=== PATIENT | male | born 1990 | race Hispanic/Latino ===

== ENCOUNTER 2016-04-29 00:16 | Emergency (ER) | payer SELFPAY ==
[2016-04-29 00:33] VITALS: BP 142/82
[2016-04-29] MEDS ORDERED: TYLENOL #3 PO ONE (03:44)
--- NOTE | 2016-04-29 04:24 | Emergency Department Report ---
ED ENT HPI - General Chief complaint: Sore Throat Stated complaint: THORAT PAIN Time Seen by Provider: 04/29/16 03:43 Source: patient Mode of arrival: Ambulatory Limitations: No Limitations - History of Present Illness Initial comments: Patient is a 75-year-old male who presents to ED complaining of left sided lower dental/jaw pain 1 week. Patient states he was into the dentist a couple of weeks ago and was given some antibiotics for his tooth infection. Patient states he had an appointment last week Monday the appointment was canceled due to the snow and he was not seen by the dentist. Patient states he has a dentist appointment in the next 2 weeks but pain has calmed progressively worse and he could not wait to 2 weeks. Patient had made some difficulty swallowing this. Due to tenderness from that side of his jaw. Patient denies fevers/chills/nausea/vomiting/abdominal pain/chest pains or shortness of breath or any other problems. - Related Data Previous Rx's Medication Instructions Recorded Last Taken Type Acetaminophen/Codeine [Tylenol #3] 1 tab PO Q6H PRN #12 tab 04/29/16 Unknown Rx Clindamycin [Clindamycin CAP] 300 mg PO Q8H #20 cap 04/29/16 Unknown Rx Ibuprofen [Motrin] 800 mg PO Q8HR PRN #30 tablet 04/29/16 Unknown Rx predniSONE [Deltasone] 5 mg PO QDAY #4 tab 04/29/16 Unknown Rx Allergies Allergy/AdvReac Type Severity Reaction Status Date / Time No Known Allergies Allergy Verified 04/29/16 00:44 ED Dental HPI - General Chief complaint: Sore Throat Stated complaint: THORAT PAIN Time Seen by Provider: 04/29/16 03:43 Source: patient Mode of arrival: Ambulatory Limitations: No Limitations - Related Data Previous Rx's Medication Instructions Recorded Last Taken Type Acetaminophen/Codeine [Tylenol #3] 1 tab PO Q6H PRN #12 tab 04/29/16 Unknown Rx Clindamycin [Clindamycin CAP] 300 mg PO Q8H #20 cap 04/29/16 Unknown Rx Ibuprofen [Motrin] 800 mg PO Q8HR PRN #30 tablet 04/29/16 Unknown Rx predniSONE [Deltasone] 5 mg PO QDAY #4 tab 04/29/16 Unknown Rx Allergies Allergy/AdvReac Type Severity Reaction Status Date / Time No Known Allergies Allergy Verified 04/29/16 00:44 ED Review of Systems ROS: Stated complaint: THORAT PAIN Other details as noted in HPI Constitutional: denies: chills, fever Eyes: denies: eye pain, eye discharge, vision change ENT: dental pain. denies: ear pain, throat pain, hearing loss, congestion Respiratory: denies: cough, shortness of breath, wheezing Cardiovascular: denies: chest pain, palpitations Endocrine: no symptoms reported Gastrointestinal: denies: abdominal pain, nausea, vomiting, diarrhea Genitourinary: denies: urgency, dysuria Musculoskeletal: denies: back pain, joint swelling, arthralgia Skin: denies: rash, lesions Neurological: denies: headache, weakness, paresthesias Psychiatric: denies: anxiety, depression Hematological/Lymphatic: denies: easy bleeding, easy bruising ED Past Medical Hx - Past Medical History Previous Medical History?: Yes Hx Hypertension: Yes Additional medical history: obesity - Surgical History Past Surgical History?: No - Social History Smoking Status: Light Tobacco Smoker Substance Use Type: Alcohol - Medications Home Medications: Home Medications Medication Instructions Recorded Confirmed Last Taken Type Acetaminophen/Codeine [Tylenol #3] 1 tab PO Q6H PRN #12 tab 04/29/16 Unknown Rx Clindamycin [Clindamycin CAP] 300 mg PO Q8H #20 cap 04/29/16 Unknown Rx Ibuprofen [Motrin] 800 mg PO Q8HR PRN #30 tablet 04/29/16 Unknown Rx predniSONE [Deltasone] 5 mg PO QDAY #4 tab 04/29/16 Unknown Rx ED Physical Exam - General Limitations: No Limitations General appearance: alert, in no apparent distress - Head Head exam: Present: atraumatic, normocephalic - Eye Eye exam: Present: normal appearance, PERRL, EOMI Pupils: Present: normal accommodation - ENT ENT exam: Present: mucous membranes moist - Neck Neck exam: Present: normal inspection, lymphadenopathy (left sided). Absent: tenderness, full ROM - Respiratory Respiratory exam: Present: normal lung sounds bilaterally. Absent: respiratory distress, wheezes, rales, rhonchi, stridor, chest wall tenderness - Cardiovascular Cardiovascular Exam: Present: regular rate, normal rhythm. Absent: systolic murmur, diastolic murmur, rubs, gallop - GI/Abdominal GI/Abdominal exam: Present: soft, normal bowel sounds. Absent: distended, tenderness, guarding, rebound, rigid - Rectal Rectal exam: Present: deferred - Extremities Exam Extremities exam: Present: normal inspection, full ROM. Absent: normal capillary refill, pedal edema, joint swelling - Back Exam Back exam: Present: normal inspection, full ROM - Neurological Exam Neurological exam: Present: alert, oriented X3, CN II-XII intact, normal gait. Absent: motor sensory deficit - Psychiatric Psychiatric exam: Present: normal affect, normal mood - Skin Skin exam: Present: warm, dry, intact, normal color. Absent: rash ED Course Vital Signs 04/29/16 04/29/16 00:31 03:49 Temperature 97.9 F Pulse Rate 63 Respiratory 18 20 Rate Blood Pressure 142/82 [Right] O2 Sat by Pulse 100 Oximetry ED Medical Decision Making - Medical Decision Making 25-year-old male presents with left-sided dental pain secondary to dental abscess Discussed patient keep his appointment with his dentist in follow-up in 2 weeks. Discussed antibody therapy as well as pain management. Discussed rapid strep test negative. Discussed sticking to foods such as soup since the cleats onto able to eat solid foods. Critical care attestation.: If time is entered above; I have spent that time in minutes in the direct care of this critically ill patient, excluding procedure time. ED Disposition Clinical Impression: Dental abscess Disposition: DISCHARGED TO HOME OR SELFCARE Is pt being admited?: No Does the pt Need Aspirin: No Condition: Stable Instructions: Dental Abscess (ED) Prescriptions: Acetaminophen/Codeine [Tylenol #3] 1 tab PO Q6H PRN #12 tab PRN Reason: Pain Clindamycin [Clindamycin CAP] 300 mg PO Q8H #20 cap predniSONE [Deltasone] 5 mg PO QDAY #4 tab Ibuprofen [Motrin] 800 mg PO Q8HR PRN #30 tablet PRN Reason: Pain Referrals: PRIMARY CARE,MD [Primary Care Provider] - 3-5 Days [facility] [Outside] - 3-5 Days [facility] [Outside] - 3-5 Days [facility] [Outside] - 3-5 Days [facility] [Outside] - 3-5 Days Forms: Accompanied Note, Work/School Release Form(ED) Time of Disposition: 05:06
== END 2016-04-29 05:40 | disposition home or self-care (01) ==
LOC: ED 00:16
DX: K04.7 Periapical abscess without sinus (principal); I10 Essential (primary) hypertension; F17.200 Nicotine dependence, unspecified, uncomplicated
CPT/HCPCS: 87116; 87430; 99282

== ENCOUNTER 2016-08-15 10:35 | Emergency (ER) | payer SELFPAY ==
[2016-08-15 10:59] VITALS: BP 143/82
--- NOTE | 2016-08-15 11:14 | Emergency Department Report ---
Entered by DELBERT HENSLEY, acting as scribe for DOMI WHIPPLE PA. Stated Complaint: SWOLLEN NECK,RECTAL BLEEDING Time Seen by Provider: 08/15/16 10:52 - HPI History of Present Illness: 25 y/o male presents c/o swollen neck and SOB that started 3 days ago. Pt notes Sx worsened this morning. - ROS Review of Systems: as noted in HPI - Exam Physical Exam: General: 25 y/o male in no acute distress. Well-developed, well-nourished. CV: Regular rate and rhythm. No murmurs rubs or gallops. Lungs: Clear to auscultation bilaterally. Abdomen: No tenderness to palpation. No guarding or rebound tenderness. Normal bowel sounds. Mini Neuro: Alert and oriented 3. MSE screening note: Focused history and physical exam performed. Due to findings the following was ordered: ED Disposition for MSE Condition: Stable This documentation as recorded by the scribe,DELBERT HENSLEY,accurately reflects the service I personally performed and the decisions made by me,DOMI WHIPPLE PA.
--- NOTE | 2016-08-15 12:41 | Emergency Department Report ---
HPI - General Chief Complaint: Dental/Oral Time Seen by Provider: 08/15/16 11:03 - HPI HPI: Patient here reported left lower back toothache and swelling to neck she feels is from his dental abscess. He said this happened to him before but is unable to follow-up with a dentist because he does not have any insurance. She reports pain is 10 out of 10 to his left lower back tooth. Denies any nausea vomiting. Denies any headache. Denies any fever or chills. He said he is taking Tylenol but it's not helping. ED Past Medical Hx - Past Medical History Previous Medical History?: Yes Hx Hypertension: Yes Additional medical history: obesity - Surgical History Past Surgical History?: No - Family History Family history: hypertension - Social History Smoking Status: Current Every Day Smoker Substance Use Type: Alcohol - Medications Home Medications: Home Medications Medication Instructions Recorded Confirmed Last Taken Type Acetaminophen/Codeine [Tylenol #3] 1 tab PO Q6H PRN #12 tab 04/29/16 08/15/16 Unknown Rx Clindamycin [Clindamycin CAP] 300 mg PO Q8H #20 cap 04/29/16 08/15/16 08/14/16 Rx Acetaminophen/Codeine [Tylenol 1 tab PO Q6H PRN #15 tab 08/15/16 Unknown Rx /Codeine # 3 tab] Ibuprofen [Motrin] 600 mg PO Q8H PRN #15 tablet 08/15/16 Unknown Rx Penicillin Vk [Veetids TAB] 500 mg PO Q8H #60 tablet 08/15/16 Unknown Rx ED Review of Systems ROS: Stated complaint: SWOLLEN NECK,RECTAL BLEEDING Other details as noted in HPI Comment: All other systems reviewed and negative Constitutional: denies: chills, fever ENT: dental pain. denies: ear pain, throat pain, congestion Respiratory: no symptoms reported Cardiovascular: denies: chest pain, palpitations, edema, syncope Gastrointestinal: denies: nausea, vomiting Musculoskeletal: denies: back pain, arthralgia Skin: denies: rash Neurological: denies: headache, weakness Physical Exam - Physical Exam Vital Signs: Vital Signs 08/15/16 10:56 Temperature 98.6 F Pulse Rate 72 Respiratory 16 Rate Blood Pressure 143/82 O2 Sat by Pulse 100 Oximetry General: This is a 25-year-old male well-nourished well-developed in no acute distress Physical Exam: Head: Normocephalic atraumatic Mouth: Moist, no pharyngeal exudate or erythema. Uvula is midline and oral airway is patent. No facial swelling. No peritonsillar abscesses. Patient with Cavities to upper and lower teeth right and left. most severe to his #17 and 18. Positive gingival hypertrophy. No cellulitis or tenderness to palpate. Nose: Nasal turbinates normal. Maxillary and frontal sinuses nontender to palpate Neck: Supple, no C-spine tenderness, no tracheal deviation. Nontender to palpate. no adenopathy . Ears: Bilateral TMs without erythema or congestion. bilateral EAC without any redness swelling or drainage. Eyes: Bilateral pupils equal and reactive to light, bilateral EOM intact. Bilateral sclera and conjunctiva without injection. Normal accommodation. Lungs: Cleart to auscultate bilaterally no rhonchi wheezes or rales. Normal work of breathing extremity; No CCE. +2 pulses. No neurovascular compromise Cardiovascular: S1-S2, regular rate rhythm. No murmurs. Skin: clean Dry and intact no rash no lesions Psych: Normal mood and behavior ED Course Vital Signs 08/15/16 10:56 Temperature 98.6 F Pulse Rate 72 Respiratory 16 Rate Blood Pressure 143/82 O2 Sat by Pulse 100 Oximetry - Reevaluation(s) Reevaluation #1: 08/15/16 14:50 Patient stable throughout ED stay ED Medical Decision Making - Medical Decision Making ED course: Patient with gingival enlargement, toothache and dental caries. I instructed him that he will need to follow-up with a dentist and I'll give him referral to community dentist to call today to schedule an appointment. She referred to [facility] dental clinic. I discussed diagnosis and treatment plan and he voiced understanding. Penicillin VK and Tylenol No. 3. Critical care attestation.: If time is entered above; I have spent that time in minutes in the direct care of this critically ill patient, excluding procedure time. ED Disposition Clinical Impression: Toothache, Dental caries, Gingival hypertrophy Disposition: DISCHARGED TO HOME OR SELFCARE Is pt being admited?: No Does the pt Need Aspirin: No Condition: Stable Instructions: Dental Caries (ED), Toothache (ED) Additional Instructions: Follow-up with dentist that he'll refer to discharge instructions Please do not drive or operate heavy machinery while taking Tylenol No. 3 as this can cause drowsiness. Take antibiotic until complete. Prescriptions: Acetaminophen/Codeine [Tylenol /Codeine # 3 tab] 1 tab PO Q6H PRN #15 tab PRN Reason: Toothache Ibuprofen [Motrin] 600 mg PO Q8H PRN #15 tablet PRN Reason: Pain Penicillin Vk [Veetids TAB] 500 mg PO Q8H #60 tablet Referrals: [facility] [Outside] - 2-3 Days [facility] [Outside] - 2-3 Days Forms: Accompanied Note, Work/School Release Form(ED)
== END 2016-08-15 15:03 | disposition home or self-care (01) ==
LOC: ED 10:35
DX: K02.9 Dental caries, unspecified (principal); K06.1 Gingival enlargement; I10 Essential (primary) hypertension; E66.9 Obesity, unspecified; F17.200 Nicotine dependence, unspecified, uncomplicated
CPT/HCPCS: 99282